=== PATIENT | female | born 1960 | race Caucasian/White ===

== ENCOUNTER 2016-08-06 20:36 | Inpatient (IN) | payer OTHER ==
--- NOTE | ~2016-08-06 | DS ---
Unit #: [id number] #: [id number] Patient: ABDI PINEDA [id number] [address] [place], [place] [address] [id number] I MR#: [id number] NAME: ABDI PINEDA ROOM: 306 Age: 55 Sex: F Admission Date: 08/06/2016 : 1960 Discharge Date: 08/08/2016 Attending Physician: Nima Vann M.D. Primary Care Physician: Marlo Miles M.D. DISCHARGE SUMMARY ADMITTING DIAGNOSIS Chronic obstructive pulmonary disease exacerbation. FURTHER DIAGNOSES 1. Hypertension. 2. Hyperlipidemia. 3. Morbid obesity. 4. Oxygen-dependent on two liters. HISTORY OF PRESENTING ILLNESS Patient is a 55-year-old lady with a past medical history of COPD, hypothyroidism, hyperlipidemia, hypertension, morbid obesity, and chronic tobacco use, who presented to the emergency room on the with the chief complaint of cough and shortness of breath. HOSPITAL COURSE In the emergency room, on initial workup she had a CT of the chest per PE protocol which was negative for PE but did show bilateral lower lobe, right middle lobe, and lingular segment left upper lobe airspace disease. She was started on antimicrobials and steroids. She is clinically feeling better, and she is eager to go home. Denies any new complaints. PHYSICAL EXAMINATION ON DAY OF DISCHARGE VITAL SIGNS: Temperature 97.5, pulse rate 56, respiratory rate 22, and blood pressure 111/50. GENERAL: Patient is alert and oriented x3, lying in the bed in no acute distress. HEENT: Normocephalic and atraumatic. No icterus. Pupils are equal, round, and reactive to light and accommodation. Extraocular muscles intact. NECK: Supple. No JVD. HEART: S1 and S2, regular rate and rhythm. CHEST: Bilateral minimal rhonchi. ABDOMEN: Soft and nontender. EXTREMITIES: No edema. Normal pulses. DISCHARGE MEDICATIONS 1. Medrol Dosepak. 2. Zithromax 250 mg p.o. daily for a total of 5 days. 3. Continue the rest of her home medications including Combivent Respimat inhaler q.4 p.r.n. for shortness of breath, hydroxyzine 50 mg p.o. daily, nicotine 21 mg topical spray every morning which she can buy [id number], hydrochlorothiazide 25 mg p.o. daily, Mucinex 1 tablet p.o. twice daily, Zocor 20 mg p.o. daily, Zanaflex 2 Unit #: [id number] #: [id number] Patient: EDWIN,ABDI mg at bedtime, and Synthroid 150 mcg p.o. daily. FOLLOWUP With her primary care, Dr. Miles, in a week. Total time spent in her care 28 minutes. Dictated by..Farida Doan/mirian TD: 08/10/2016 14:26 JOB #: [id number] DISCHARGE SUMMARY X X DISCHARGE SUMMARY
--- NOTE | ~2016-08-06 | HP ---
Unit #: [id number] #: [id number] Patient: ABDI PINEDA [id number] [facility]. [address] [address] [id number] I MR#: [id number] NAME: ABDI PINEDA ROOM: 306 Age: 55 Sex: F Admission Date: 08/06/2016 : 1960 Attending Physician: Frank Burgos M.D. Primary Care Physician: Marlo Miles M.D. HISTORY AND PHYSICAL CHIEF COMPLAINT Shortness of breath, chest pain with deep breath, cough, wheezing. DISCUSSION This is a 55-year-old female who has a past medical history of COPD oxygen dependent, hypothyroid, dyslipidemia, hypertension, obesity, long-term tobacco abuse. She presented to emergency room with chief complaint of having shortness of breath and chest pain with a cough, wheezing. She said these symptoms progressed over one week but got worse today. She was unable to breathe and she came to ER. Initially, she was found to have saturations 82% on room air and she underwent workup. On her laboratory tests: AST is 46, ALT 58, alkaline phosphatase 178. Chest x-ray shows bilateral basilar atelectasis versus infiltrates. CT chest PE protocol is pending at time of dictation but she denies fever, chills, dysuria, polyuria, headache, loss of consciousness, or any other complaint. PAST MEDICAL HISTORY 1. History of hypothyroid. 2. Dyslipidemia. 3. COPD, oxygen dependent. 4. Hypertension. 5. Obesity. PAST SURGICAL HISTORY 1. History of left hand surgery. 2. History of skin graft to left buttock. ALLERGIES No known drug allergies. HOME MEDICATIONS 1. Hydrochlorothiazide 25 mg daily. 2. Levothyroxine 150 mcg daily. 3. Zocor 20 mg daily. 4. Zanaflex 2 mg at bedtime. 5. Combivent four times a day. 6. Hydroxyzine 50 mg at bedtime. SOCIAL HISTORY She used to smoke two packs per day for 41 years. She smokes half pack daily. She denies alcohol. She denies other illicit drug use. FAMILY HISTORY Mother, sister, brother all have COPD. Unit #: [id number] #: [id number] Patient: ABDI PINEDA REVIEW OF SYSTEMS All review of systems negative except as mentioned in the history of present illness. PHYSICAL EXAMINATION GENERAL: On examination, a middle-aged female lying in the bed comfortably, currently not in any distress. She is alert, awake, oriented x3. VITAL SIGNS: The current vitals are following: Temperature 98.5, heart rate 75, respiratory rate 24, blood pressure is 167/75. HEENT: Pupils equal and reactive to light and accommodation. Head is normocephalic and atraumatic. Sclerae normal. No pallor. Extraocular muscles intact. Pharynx: No erythema. NECK: Supple. No JVD. No thyromegaly. LUNGS: Decreased air entry with bilateral diffuse expiratory wheeze. HEART: S1, S2. Regular rate and rhythm. No (1) . No murmur. No gallop. ABDOMEN: Soft, nontender, nondistended. Bowel sounds positive. EXTREMITIES: Inspection normal. No cyanosis. No clubbing. No edema. NEUROLOGIC: She is alert and oriented x4. Power 5/5 on both sides. Cranial nerves II-XII intact. PSYCHIATRIC: Mood is normal. SKIN: Warm, dry. No rash. No skin lesions. DIAGNOSTIC STUDIES LABORATORY: Laboratory workup is following: Sodium is 137, potassium 3.8, chloride 97, CO2 of 33, glucose 117, BUN 10, creatinine 0.6. AST 46, ALT 58, alkaline phosphatase 178. White count 10.6, hemoglobin 13, hematocrit 40, platelets 340,000. BNP is 44. INR 0.9. Troponin less than 0.05, less than 0.05. IMAGING: Chest x-ray shows mild cardiomegaly, bibasilar infiltrate versus atelectasis. ASSESSMENT AND PLAN 1. Acute exacerbation of chronic obstructive pulmonary disease, oxygen dependent: Will admit the patient and start on IV Levaquin, IV Solu-Medrol, duo nebulizer, Mucinex. 2. Questionable bilateral basilar infiltrate: Will start patient on IV Levaquin. Will get sputum for culture. CT chest is pending for pulmonary embolus protocol. 3. Pleuritic chest pain: Will repeat troponin in the morning. 4. Abnormal liver function tests: Repeat CBC in the morning. If it is abnormal, will get also hepatitis profile in the morning. 5. Hypothyroid: Continue Synthroid. Recheck TSH. 6. Dyslipidemia: Continue statin. 7. History of hypertension. 8. Obesity. 9. Long-term tobacco abuse: Place on nicotine patch. 10. Deep venous thrombosis prophylaxis: Will place on Lovenox. Dictated by Farida Veliz/ Unit #: [id number] #: [id number] Patient: ABDI PINEDA TD: 08/07/2016 09:11 JOB #: [id number] HISTORY AND PHYSICAL X X HISTORY AND PHYSICAL
--- NOTE | ~2016-08-06 | CT16 ---
[facility] A Service of [facility] RADIOLOGY TEXT RESULTS PATIENT: ABDI PINEDA LOCATION: [facility] 306-01 : 58 UNIT #: [id number] AGE: [address]: Frank Burgos MD SEX: F ORDER DR: [id number] [facility] [address] [facility]. [place], [place] [address] [id number] I MR#: [id number] Acc #: [id number] NAME: ABID PINEDA : 1960 SEX: F STUDY DATE/TIME: 08/06/2016 22:09 UNIT: [address] ROOM: [facility] STUDY DESCRIPTION: CT Angio Chest for PE Attending Physician: Frank Burgos M.D. Ordering Physician: Skyler Mallory M.D. Primary Care Physician: Marlo Miles M.D. MEDICAL IMAGING REPORT This report is preliminary unless electronic signature is present EXAM CT angiography of the chest with contrast, pulmonary embolism protocol. Date: 08/06/2016. HISTORY Shortness breath with chest pain, cough since last Monday. Elevated D-dimer 1108. COMPARISON AP portable chest radiograph 08/06/2069 at 20:37. PROCEDURE 2 mm axial images through the chest after intravenous contrast administration. 3-D coronal MIP reformatted images were obtained. This CT exam was performed with one or more of the following radiation dose reduction techniques: automatic exposure control, adjustment of mA and/or kV according to patient size, and iterative reconstruction. FINDINGS There is no pulmonary embolism. No thoracic aortic aneurysm or aortic dissection. Patchy alveolar disease changes are present within the right middle lobe, lingular segment left upper lobe, and bilateral lower lobes. Mild cardiomegaly with trace pericardial fluid. Shotty mediastinal lymph nodes are favored to represent benign reactive changes. No pleural effusion. Included portions of the upper abdominal organs are within normal limits. IMPRESSION 1. Bilateral lower lobe, right middle lobe and lingular segment left upper lobe airspace disease. Correlate clinically for pneumonia. 2. Mild cardiomegaly. [facility] A Service [facility] RADIOLOGY TEXT RESULTS PATIENT: ABDI PINEDA LOCATION: [facility] 306-01 : 58 UNIT #: [id number] AGE: [address]: Frank Burgos MD SEX: F ORDER DR: 3. No pulmonary embolism. No aortic aneurysm or dissection. Dictated by... Flavia Rodriguez M.D. THIS IS AN ELECTRONICALLY VERIFIED REPORT Flavia Rodriguez M.D. at 08/07/2016 9:58 PM H/belkis TD: 08/07/2016 10:18 JOB #: [id number] MEDICAL IMAGING REPORT COPY
--- NOTE | ~2016-08-06 | CR72 ---
[facility] A Service of [facility] RADIOLOGY TEXT RESULTS PATIENT: ABDI PINEDA LOCATION: [facility] 306- : 58 UNIT #: [id number] AGE: [address]: Frank Burgos MD SEX: F ORDER DR: [id number] [facility] [address] [facility]. [place], [place] [address] [id number] I MR#: [id number] Acc #: [id number] NAME: ABDI PINEDA : 1960 SEX: F STUDY DATE/TIME: 08/06/2016 20:37 UNIT: [address] ROOM: [facility] STUDY DESCRIPTION: CR Chest Single View Portable Attending Physician: Frank Burgos M.D. Ordering Physician: Skyler Mallory M.D. Primary Care Physician: Marlo Miles M.D. MEDICAL IMAGING REPORT This report is preliminary unless electronic signature is present EXAM Portable chest 08/06/2016. HISTORY Chest pain, shortness breath and cough for 1 week, COPD exacerbation. Benign essential hypertension. COMPARISON There is no prior chest radiograph for comparison. FINDINGS There is mild cardiac enlargement. There is poor inspiratory result with bibasilar infiltrates and/or atelectasis. The upper lungs are clear. Blunting of the costophrenic angles is seen bilaterally. IMPRESSION 1. Mild cardiomegaly. 2. Poor inspiratory result with bibasilar infiltrates and/or atelectasis. Dictated by... Roshan Nevarez M.D. THIS IS AN ELECTRONICALLY VERIFIED REPORT Roshan Nevarez M.D. at 08/07/2016 2:17 PM KRT/gz TD: 08/07/2016 09:42 JOB #: [id number] MEDICAL IMAGING REPORT COPY
--- NOTE | ~2016-08-06 | EKG ---
PATIENT: ABDI PINEDA UNIT #: [id number] Ventricular Rate: 72 BPM Atrial Rate: 72 BPM P-R Interval: 156 ms QRS Duration: 102 ms Q-T Interval: 404 ms QTC Calculation(Bezet): 442 ms P [place]: 24 degrees Calculated R [place]: -37 degrees Calculated T [place]: 129 degrees Diagnosis Line: Normal sinus rhythm Diagnosis Line: Left axis deviation Diagnosis Line: Low voltage QRS Diagnosis Line: Cannot rule out Anterior infarct , age Diagnosis Line: undetermined Diagnosis Line: T wave abnormality, consider lateral ischemia Diagnosis Line: Abnormal ECG Diagnosis Line: No previous ECGs available Diagnosis Line: Confirmed by POLO CARDONA MD ([id number]) on Diagnosis Line: 08/08/2016 12:04:41 AM INTERPRETING MD: BRENDAN MENJIVAR
[~2016-08-06 20:36] MED LIST: ALBUTEROL17 GM; BACTRIM DS TABL1 TA1 PO; FLEXERIL PO; FLEXERIL10 MG PO; HYDROCODON-ACE1 EAC7 PO; IBUPROFEN800 MG PO; KEFLEX500 MG PO; MOTRIN400 MG PO; OXYGEN; SYNTHROID
[2016-08-06 20:46] LABS: BASOPHIL# 0.1 X10e3 (0-0.3); BASOPHIL% 0.9 % (0-2.5); EOSINOPHIL# 0.3 X10e3 (0-0.7); EOSINOPHIL% 3.2 % (0.0-7.0); HEMATOCRIT 40.7 % (35.0-45.0); HEMOGLOBIN 13.4 gm/dL (12.0-16.0); LYMPHOCYTE# 1.8 X10e3 (1.0-3.5); LYMPHOCYTE% 17.4 % (17.0-45.0); MEAN CELL VOLUME 99.6 FL (83-96); MEAN CORPUSCULAR HEMOGLOBIN 32.8 PG (28-34); MEAN PLATELET VOLUME 6.5 FL (6.5-11.5); MONOCYTE# 0.6 X10e3 (0-1.0); MONOCYTE% 5.4 % (3.0-12.0); NEUTROPHIL# 7.8 X10e3 (1.5-7.1); NEUTROPHIL% 73.1 % (40-75); PLATELET COUNT 340 X10e3 (140-420); RED BLOOD COUNT 4.09 X10e (3.90-5.30); RED CELL DISTRIBUTION WIDTH 14.7 % (11.0-15.5); WHITE BLOOD COUNT 10.6 X10e3 (4.0-10.5)
[2016-08-06 20:47] LABS: DIFF IND NO
[2016-08-06 21:00] LABS: INR 0.9; PARTIAL THROMBOPLASTIN TIME 28.4 SECONDS (23.5-31.3); PROTHROMBIN TIME (PATIENT) 9.7 SECONDS (9.6-11.5)
[2016-08-06] MEDS ORDERED: HYDROCHLOROTHIA25 MG PO (21:02)
[2016-08-06] MEDS ORDERED: SYNTHROID0.05 MG PO (21:02)
[2016-08-06 21:07] LABS: ALBUMIN SERUM 3.8 g/dL (3.5-5.0); ALKALINE PHOSPHATASE 178 U/L (32-92); ALT (SGPT) 58 U/L (10-40); AST (SGOT) 46 U/L (10-42); BILIRUBIN, DIRECT 0.1 mg/dL (0.0-0.2); BILIRUBIN,INDIRECT 0.2 mg/dL (0.0-0.9); BILIRUBIN,TOTAL 0.3 mg/dL (0.2-2.0); BLOOD UREA NITROGEN 10 mg/dL (9-23); BUN/CREATININE RATIO 16.66; CALCIUM SERUM 8.7 mg/dL (8.4-10.2); CARBON DIOXIDE 33 mmol/L (22-31); CHLORIDE 97 mmol/L (100-111); CREATININE SERUM 0.6 mg/dL (0.6-1.4); GLOM FILT RATE Estimated ABOVE60 mL/min (>60); GLUCOSE FASTING 117 mg/dL (70-110); POTASSIUM 3.8 mmol/L (3.5-5.1); PROTEIN TOTAL SERUM 7.6 g/dL (6.0-8.3); SODIUM 137 mmol/L (135-145)
[2016-08-06] MEDS ORDERED: LEVOTHYROXINE150 MC1 PO (21:09)
[2016-08-06] MEDS ORDERED: ZOCOR20 MG PO (21:09)
[2016-08-06] MEDS ORDERED: COMBIVENT RESPIM4 GM INH (21:10)
[2016-08-06] MEDS ORDERED: ZANAFLEX2 MG PO (21:10)
[2016-08-06] MEDS ORDERED: HYDROXYZINE HCL50 MG PO (21:11)
[2016-08-06 21:35] LABS: POC - CKMB 3.5 ng/mL (0.0-7.9); POC - TROPONIN <0.05 ng/mL (<=0.05)
[2016-08-06 22:11] LABS: POC - CKMB 3.5 ng/mL (0.0-7.9); POC - TROPONIN <0.05 ng/mL (<=0.05)
[2016-08-07 06:10] LABS: BASOPHIL# 0.1 X10e3 (0-0.3); BASOPHIL% 0.5 % (0-2.5); EOSINOPHIL# 0.1 X10e3 (0-0.7); EOSINOPHIL% 0.8 % (0.0-7.0); HEMATOCRIT 42.8 % (35.0-45.0); HEMOGLOBIN 13.8 gm/dL (12.0-16.0); LYMPHOCYTE# 1.2 X10e3 (1.0-3.5); LYMPHOCYTE% 9.4 % (17.0-45.0); MEAN CELL VOLUME 100.9 FL (83-96); MEAN CORPUSCULAR HEMOGLOBIN 32.5 PG (28-34); MEAN CORPUSCULAR HGB CONC 32.2 g/dL (30-36); MEAN PLATELET VOLUME 6.5 FL (6.5-11.5); MONOCYTE# 0.2 X10e3 (0-1.0); MONOCYTE% 1.5 % (3.0-12.0); NEUTROPHIL# 10.7 X10e3 (1.5-7.1); NEUTROPHIL% 87.8 % (40-75); PLATELET COUNT 353 X10e3 (140-420); RED BLOOD COUNT 4.24 X10e (3.90-5.30); WHITE BLOOD COUNT 12.2 X10e3 (4.0-10.5)
[2016-08-07 06:17] LABS: DIFF IND NO
[2016-08-07 06:59] LABS: ALBUMIN SERUM 3.7 g/dL (3.5-5.0); ALKALINE PHOSPHATASE 184 U/L (32-92); ALT (SGPT) 59 U/L (10-40); AST (SGOT) 44 U/L (10-42); BILIRUBIN,TOTAL 0.4 mg/dL (0.2-2.0); BLOOD UREA NITROGEN 10 mg/dL (9-23); BUN/CREATININE RATIO 14.28; CARBON DIOXIDE 35 mmol/L (22-31); CHLORIDE 101 mmol/L (100-111); CREATININE SERUM 0.7 mg/dL (0.6-1.4); GLOM FILT RATE Estimated ABOVE60 mL/min (>60); GLUCOSE FASTING 142 mg/dL (70-110); POTASSIUM 4.7 mmol/L (3.5-5.1); PROTEIN TOTAL SERUM 7.1 g/dL (6.0-8.3); SODIUM 142 mmol/L (135-145)
[2016-08-08 06:14] LABS: HEMATOCRIT 39.7 % (35.0-45.0); HEMOGLOBIN 12.9 gm/dL (12.0-16.0); MEAN CELL VOLUME 100.2 FL (83-96); MEAN CORPUSCULAR HEMOGLOBIN 32.5 PG (28-34); MEAN CORPUSCULAR HGB CONC 32.4 g/dL (30-36); MEAN PLATELET VOLUME 6.6 FL (6.5-11.5); RED BLOOD COUNT 3.96 X10e (3.90-5.30); RED CELL DISTRIBUTION WIDTH 14.7 % (11.0-15.5); WHITE BLOOD COUNT 14.7 X10e3 (4.0-10.5)
[2016-08-08 07:28] LABS: BLOOD UREA NITROGEN 13 mg/dL (9-23); BUN/CREATININE RATIO 18.57; CALCIUM SERUM 9.5 mg/dL (8.4-10.2); CARBON DIOXIDE 39 mmol/L (22-31); CHLORIDE 94 mmol/L (100-111); CREATININE SERUM 0.7 mg/dL (0.6-1.4); GLOM FILT RATE Estimated ABOVE60 mL/min (>60); GLUCOSE FASTING 108 mg/dL (70-110); POTASSIUM 4.3 mmol/L (3.5-5.1); SODIUM 143 mmol/L (135-145)
[2016-08-08] MEDS ORDERED: NICOTINE TRANSD21 MG TOP (12:51)
[2016-08-08] MEDS ORDERED: MUCINEX D ER T1 EAC1 PO (12:52)
[2016-08-08] MEDS ORDERED: AZITHROMYCIN250 MG PO (12:52)
[2016-08-08] MEDS ORDERED: MEDROL DOSEPAK4 MG PO (12:52)
[2016-08-10 14:32] LABS: HA AB IGM (HEPPAN) Nonreactive (Nonreactive); HB CORE AB IGM (HEPPAN) Nonreactive (Nonreactive); HB S AG (HEPPAN) Nonreactive (Nonreactive); HEP C AB (HEPPAN) Nonreactive (Nonreactive); HEP C AB SIGNAL TO CUTOFF 0.04 ratio (<1.00)
== END 2016-08-08 17:59 | disposition home or self-care (01) | DRG 189 ==
LOC: CED 20:36 → CEDOF 22:50 → C3A PCU 08-07 01:11
PROVIDERS: Emergency Medicine; Internal Medicine
PROC: B32TYZZ Computerized Tomography (CT Scan) of Left Pulmonary Artery using Other Contrast (ICD-10-PCS; 2016-08-06)
PROC: B32SYZZ Computerized Tomography (CT Scan) of Right Pulmonary Artery using Other Contrast (ICD-10-PCS; 2016-08-06)
PROC: 0HBRXZZ Excision of Toe Nail, External Approach (ICD-10-PCS; principal; 2016-08-08)
PROC: 0HBRXZZ Excision of Toe Nail, External Approach (ICD-10-PCS; 2016-08-08)
PROC: 0HBRXZZ Excision of Toe Nail, External Approach (ICD-10-PCS; 2016-08-08)
PROC: 0HBRXZZ Excision of Toe Nail, External Approach (ICD-10-PCS; 2016-08-08)
PROC: 0HBRXZZ Excision of Toe Nail, External Approach (ICD-10-PCS; 2016-08-08)
PROC: 0HBRXZZ Excision of Toe Nail, External Approach (ICD-10-PCS; 2016-08-08)
PROC: 0HBRXZZ Excision of Toe Nail, External Approach (ICD-10-PCS; 2016-08-08)
PROC: 0HBRXZZ Excision of Toe Nail, External Approach (ICD-10-PCS; 2016-08-08)
PROC: 0HBRXZZ Excision of Toe Nail, External Approach (ICD-10-PCS; 2016-08-08)
PROC: 0HBRXZZ Excision of Toe Nail, External Approach (ICD-10-PCS; 2016-08-08)
DX: J96.01 Acute respiratory failure with hypoxia (principal); J18.9 Pneumonia, unspecified organism; Z99.81 Dependence on supplemental oxygen; J44.1 Chronic obstructive pulmonary disease with (acute) exacerbation; E03.9 Hypothyroidism, unspecified; I10 Essential (primary) hypertension; F17.210 Nicotine dependence, cigarettes, uncomplicated; B35.1 Tinea unguium; E78.5 Hyperlipidemia, unspecified; E66.9 Obesity, unspecified; R07.89 Other chest pain; L60.0 Ingrowing nail; F41.9 Anxiety disorder, unspecified; R74.0 Nonspecific elevation of levels of transaminase and lactic acid dehydrogenase [LDH]; Z68.37 Body mass index [BMI] 37.0-37.9, adult
CPT/HCPCS: 36415; 71010; 71275; 80048; 80053; 80074; 80076; 82550; 82553; 83880; 84443; 84484; 85025; 85027; 85379; 85610; 85730; 87070; 87205; 93005; 94640; 94760; 96365; 96375; 99285; J0456; J0696; J1650; J2930; Q9967